=== PATIENT | male | born 1990 | race Caucasian/White ===

== ENCOUNTER 2018-05-19 21:26 | Inpatient (IN) | payer MEDICAID ==
[~2018-05-19] VITALS: Ht 175.3 cm; Wt 121.6 kg
[2018-05-19 21:27] VITALS: BP 122/59
--- NOTE | 2018-05-19 21:31 | NUR ---
TO ER BED 10
--- NOTE | 2018-05-19 21:32 | NUR ---
RT AT BEDSIDE WITH BREATHING TX.
[2018-05-19] MEDS ORDERED: NACL 0.9% 1,000 ML IV ONE ×2 (21:40)
[2018-05-19] MEDS ORDERED: ALBUTEROL SULFATE/IPRATROPIU 3 ML SOL IH ONE (21:40)
--- NOTE | 2018-05-19 21:42 | NUR ---
NON-REBREATHER MASK APPLIED PER DR BARNES ORDERS AT 15LPM.
[2018-05-19 21:57] LABS: HEMATOCRIT 34.8 % (36-52); HEMOGLOBIN 11.3 g/dL (12.0-18.0); MEAN CORPUSCULAR HEMOGLOBIN 26 pg (27-31); MEAN CORPUSCULAR HGB CONC 32 g/dL (33-37); MEAN CORPUSCULAR VOLUME 80.2 fL (80-94); PLATELET COUNT (AUTO) 420 K/uL (140-450); RED BLOOD CELL COUNT(AUTO) 4.33 MIL/uL (4.20-6.10); RED CELL DISTRIBUTION WIDTH 13.8 % (11.6-13.7); WHITE BLOOD COUNT (AUTO) 18.7 K/uL (4.8-10.8)
--- NOTE | 2018-05-19 22:00 | NUR ---
CHEST TUBE SETUP PREPARED PER DR BARNES ORDERS. OBTAINED CONCENT FOR PROCEDURE. PT A&OX4. PT STABLE, RESPONSIVE, SIGNED FOR SELF. CONTINUE TO MONITOR.
[2018-05-19 22:24] LABS: PROTHROMBIN TIME 12.6 secs (10.8-13.4)
--- NOTE | 2018-05-19 22:30 | NUR ---
PT REMAINS TACHYPNIC, TACHYCARDI, A&OX4, HOB ELEVATED, SKIN WNL. RN AND RT AT BEDSIDE. CONTINUE TO MONITOR.
[2018-05-19 22:33] LABS: LYMPHOCYTES % (MANUAL) 12 % (20-46); MONOCYTES % (MANUAL) 6 % (5-12)
[2018-05-19] MEDS ORDERED: LIDOCAINE/EPI 1% 1:100000 20 ML VIAL INJ ONE (22:45)
[2018-05-19] MEDS ORDERED: LEVOFLOXACIN 750 MG/D5W PREMIX 150 ML IV ONE (22:55)
[2018-05-19] MEDS ORDERED: KETAMINE 500 MG/5 ML VIAL IVP ONE (23:00)
--- NOTE | 2018-05-19 23:07 | NUR ---
TIME OUT CALLED BY DR CRONIN
--- NOTE | 2018-05-19 23:23 | NUR ---
MODERATE SEDATION STARTED. RT AT BEDSIDE. DR FRAUSTO AT BEDSIDE SUPERVISED BY DR CRONIN.
--- NOTE | 2018-05-19 23:31 | NUR ---
KATAMINE 75MG PUSHED. RT AT BEDSIDE. VERBAL ORDER FROM DR CRONIN
--- NOTE | 2018-05-19 23:37 | NUR ---
ATRIUM CONNECTED, PLEURAVAC SET TO 20CM OF WATER SUCTION Addendum: 05/20/18 at 0645 by [facility] CONNECTED, PLEURAVAC SET TO -20CM OF WATER SUCTION PER DR MOLLY AGUILAR. AIR LEAK DETECTED UPON ATTACHMENT. WATER CHAMBER FLUCTUTING WITH RESPIRATIONS. WALL SUCTION SET TO LOW CONTINUOUS. 10ML OF SANGINEOUS FLUID DRAINED.
--- NOTE | 2018-05-19 23:40 | NUR ---
INITIAL 10ML OF FLUID REMOVED FROM PLEURAL CAVITY.
--- NOTE | 2018-05-19 23:40 | NUR ---
DR SHER APPLIED DELILAH MARTINEZ AROUND CHEST TUBE SITE, PRESSURE DRESSING APPLIED, TUBE SECURED WITH ELASIAPLAST TAPE. PT TOLERATED PROCEDURE WELL. Addendum: 05/20/18 at 0605 by MED KETAMINE 75MG PUSHED. RT AT BEDSIDE. VERBAL ORDER FROM DR CRONIN
--- NOTE | 2018-05-19 23:41 | NUR ---
PT STARTED RESPONDING TO STIMULIE. FOLLOWING COMMANDS
--- NOTE | 2018-05-19 23:47 | NUR ---
PROCEDURE COMPLETED. TOLERATED PROCEDURE WELL.
--- NOTE | 2018-05-19 23:52 | NUR ---
XRAY AT BEDSIDE
[2018-05-19 23:55] LABS: POTASSIUM 4.1 mmol/L (3.5-5.1)
--- NOTE | 2018-05-19 23:55 | NUR ---
PT ALERT TO NAME, FOLLOWS VERBAL COMMANDS, CONFUSED TO DATE/TIME/PLACE/EVENT. MOTHER AT BED SIDE. ER NURSE AT BEDSIDE. CONTINUE TO MONITOR.
[2018-05-19 23:56] LABS: ANION GAP 13.9 (8-16); CARBON DIOXIDE 23.2 mmol/L (21-32); CREATININE 1.6 mg/dL (0.7-1.3)
[2018-05-19 23:58] LABS: TOTAL BILIRUBIN 3.1 mg/dL (0.0-1.0)
[2018-05-19 23:59] LABS: ALBUMIN 2.4 g/dL (3.4-5.0)
[2018-05-20] VITALS (11 sets, daily range): BP systolic 97–145; BP diastolic 35–90
[2018-05-20] MEDS ORDERED: HYDROcodone/APAP 7.5/325 MG 1 TAB PO PRN
[2018-05-20] MEDS ORDERED: DOCUSATE SODIUM 100 MG GELCAP PO PRN
[2018-05-20] MEDS ORDERED: ONDANSETRON 4 MG/2 ML VIAL IM/IVP PRN
[2018-05-20] MEDS ORDERED: ACETAMINOPHEN 325 MG TAB PO PRN
--- NOTE | 2018-05-20 | NUR ---
PT ALERT TO NAME, FOLLOWS VERBAL COMMANDS, CONFUSED TO DATE/TIME/PLACE/EVENT. MOTHER AT BED SIDE. ER NURSE AT BEDSIDE. CONTINUE TO MONITOR.
--- NOTE | 2018-05-20 00:07 | NUR ---
PT ALERT TO NAME, PLACE, EVENT, CONFUSTED TO TIME/DAY. FOLLOWS VERBAL COMMANDS. PT IMPROVING. NOW C/O PAIN 7/10 PAIN PER FACE SCALE.
[2018-05-20] MEDS ORDERED: fentaNYL 0.05 MG/ML VIAL IVP ONE (00:10)
[2018-05-20] MEDS ORDERED: ALBUTEROL SULFATE/IPRATROPIU 3 ML SOL IH PRN (00:10)
--- NOTE | 2018-05-20 00:21 | NUR ---
A&OX3. ALERT TO NAME PLACE AND EVENT. VSS. CONTINUE TO MONITOR.
--- NOTE | 2018-05-20 00:27 | NUR ---
45ML SEROUS FLUID IN COLLECTOIN CHAMBER. PLEUAVAC SUCTION SET TO 20CM. SUCTION TUBING AND CHEST TUBE ON LEFT SIDE INTACT. VSS. CONTINUE TO MONITOR. PREPARING TO MOVE TO ICU 3.
[2018-05-20] MEDS: ALBUTEROL SULFATE/IPRATROPIU 3 ML SOL IH SCH ×6 (01:00→23:13)
[2018-05-20] MEDS ORDERED: KETAMINE 500 MG/5 ML VIAL IVP ONE (01:05)
--- NOTE | 2018-05-20 01:30 | NUR ---
PATIENT WAS BROUGHT TO [facility] BY ED RN OLIVIER AND ELOY ER CHARGE NURSE FOR CT CHEST/ABD/PELVIS, WENT THERE TO TAKE OVER PATIENT'S CARE, PATIENT BROUGHT TO ICU AT 0130.
--- NOTE | 2018-05-20 01:30 | NUR ---
RECEIVED PT FROM ER VIA GURNEY.ATTACHED TO MONITOR.ST NOTED.ON 100% NON REBREATHER, BREATHING LABORED.W/ CHEST TUBE TO LT CHEST DRAINING SEROSANGUINEOUS OUTPUT(45ML LINE FROM ER). PT AWAKE ALERT AND ORIENTED.W/PERIPHERAL IV TO RT F/A G22 INTACT INFUSING ORDERED IVF.DENIES N/V AT THIS TIME.DENIESPAIN.ABLE TO MOVE ALL EXTREMITIES.
--- NOTE | 2018-05-20 01:40 | NUR ---
HOLD HHN TX DUE TO HR MORE THE 138, BS ARE CLEAR UPPER AIRAY AND DIMINISHED IN BASES.
[2018-05-20] MEDS ORDERED: DEXTROSE 50% 50 ML SYR IVP PRN (01:45)
--- NOTE | 2018-05-20 01:45 | NUR ---
PT DIAPHORETIC; BS CHECKED 131
[2018-05-20 02:03] LABS: MAGNESIUM 2.1 mg/dL (1.8-2.4)
[2018-05-20 02:04] LABS: CHOL/HDL RATIO 5.5 (1-4.5); PHOSPHORUS 4.2 mg/dL (2.5-4.9)
[2018-05-20 02:32] LABS: FREE T4 (FREE THYROXINE) 2.15 ng/dL (0.76-1.46); THYROID STIMULATING HORMONE 0.01 uIU/mL (0.34-3.74)
[2018-05-20] MEDS: NACL 0.9% 1,000 ML IV SCH ×3 (02:56→20:11)
--- NOTE | 2018-05-20 03:16 | NUR ---
URINE SPECIMEN SENT TO LAB ORDERED
[2018-05-20 03:32] LABS: APPEARANCE,URINE CLEAR (CLEAR); BILIRUBIN,URINE NEGATIVE (NEGATIVE); BLOOD, URINE NEGATIVE (NEGATIVE); COLOR,URINE AMBER (YELLOW); LEUKOCYTE ESTERASE ,URINE NEGATIVE (NEGATIVE); NITRITE, URINE NEGATIVE (NEGATIVE); UGLUCOSE NEGATIVE (NEGATIVE)
[2018-05-20] MEDS ORDERED: METOPROLOL 5 MG/5 ML VIAL IVP ONE (03:35)
--- NOTE | 2018-05-20 03:35 | NUR ---
abg done by rt as ordered.non rebreather changed to simple mask. will continue to monitor pt.chest tube intact.
[2018-05-20 03:39] LABS: BARBITURATE, URINE NEG. ng/ml (NEG <=200); BENZODIAZEPINE, URINE NEG. ng/mL (NEG <=200); CANNABINOID, URINE NEG. ng/mL (NEG <=50); COCAINE, URINE NEG. ng/mL (NEG <=300); OPIATE, URINE NEG. ng/mL (NEG <=2000); PHENCYCLIDINE SCREEN,URINE NEG. ng/mL (NEG <=25)
[2018-05-20 03:54] LABS: RBC,URINE 0-5 (RARE) /HPF (0-5); WBC,URINE 0-5 (RARE) /HPF (0-5)
[2018-05-20 03:56] LABS: COARSE GRANULAR CASTS,URINE 0-10 /LPF (None Seen)
--- NOTE | 2018-05-20 05:19 | NUR ---
PHONE CALL TO DR ARLETH RUSH, RE; METOPROLOL NOT GIVEN EARLIER DUE TO SBP BELOW 100; BP AT THIS TIME 141/78; HR 120'S. TO GIVE METOPROLOL NOW
[2018-05-20] MEDS: MORPHINE SULFATE 2 MG/ML SYR IVP PRN ×3 (06:04→14:46)
--- NOTE | 2018-05-20 06:57 | NUR ---
DR LATHAM AND DR STONE AT BEDSIDE.NO NEW ORDERS AT THIS TIME
--- NOTE | 2018-05-20 07:14 | NUR ---
REPORT GIVEN TO LYRIC WEST.
--- NOTE | 2018-05-20 07:16 | NUR ---
RECEIVED REPORT FROM SUPERVISOR OF INSTRUCTION RN. PT RESTING IN BED. TACHYPNEIC. ON FACE MASK O2 AT 7 LTR/MIN. SATURATING 97%. SKIN DRY AND WARM TO TOUCH. LUNGS SOUND DIMINISHED. CHEST TUBE NOTED ON LEFT CHEST. SECURED WITH DRESSING. INTACT DRESSING. BLOODY DRAINAGE NOTED ON WATER SEAL CHEST DRAIN. PATIENT DENIES CHEAT PAIN AND DISCOMFORT AT THIS TIME. RIGHT AC 20G. NS RUNNING AT 120 ML/HR. ABDOMEN SOFT, ROUND AND NON-TENDER, ACTIVE BOWEL PT. KEPT HOB ELEVATED. BED IN LOW POSITION LOCKED. CALL LIGHT WITHIN REACH. WILL CONTINUE TO MONITOR.
[2018-05-20 07:32] LABS: HEMATOCRIT 32.1 % (36-52); HEMOGLOBIN 10.2 g/dL (12.0-18.0); MEAN CORPUSCULAR HEMOGLOBIN 26 pg (27-31); MEAN CORPUSCULAR HGB CONC 32 g/dL (33-37); MEAN CORPUSCULAR VOLUME 80.8 fL (80-94); PLATELET COUNT (AUTO) 370 K/uL (140-450); RED BLOOD CELL COUNT(AUTO) 3.97 MIL/uL (4.20-6.10); RED CELL DISTRIBUTION WIDTH 13.7 % (11.6-13.7); WHITE BLOOD COUNT (AUTO) 19.6 K/uL (4.8-10.8)
--- NOTE | 2018-05-20 07:44 | NUR ---
PT FINISHED EATING BREAKFAST. KEPT ON FACE MASK AT 7 LTR/MIN. SATURATING 97%.
--- NOTE | 2018-05-20 07:50 | NUR ---
PT DENIED MORNING CARE.
[2018-05-20 07:52] LABS: EOSINOPHILS % (MANUAL) 1 % (0-4); LYMPHOCYTES % (MANUAL) 4 % (20-46); MONOCYTES % (MANUAL) 5 % (5-12)
[2018-05-20 07:54] LABS: ANION GAP 13.5 (8-16); CARBON DIOXIDE 21.7 mmol/L (21-32); CREATININE 1.5 mg/dL (0.7-1.3); POTASSIUM 5.2 mmol/L (3.5-5.1)
[2018-05-20 07:58] LABS: MAGNESIUM 2.1 mg/dL (1.8-2.4); PHOSPHORUS 3.9 mg/dL (2.5-4.9)
--- NOTE | 2018-05-20 08:00 | NUR ---
RT AT BED SIDE.
--- NOTE | 2018-05-20 08:22 | NUR ---
PATIENT HAS BEEN SCREENED AND CATEGORIZED HIGH NUTRITION RISK. PATIENT WILL BE SEEN WITHIN 1-2 DAYS OF ADMISSION. 05/20/18 05/21/[address]
--- NOTE | 2018-05-20 09:07 | NUR ---
DR. HOWELL AT BEDSIDE EVALUATING PT.
[2018-05-20] MEDS: BLOOD GLUCOSE MONITORING 1 DEV DEV FS SCH ×4 (09:10→20:13)
[2018-05-20] MEDS: PANTOPRAZOLE 40 MG INJ VIAL IVP SCH (09:20)
[2018-05-20] MEDS: ASPIRIN 81 MG TAB.CHEW PO SCH (09:20)
[2018-05-20] MEDS: METOPROLOL 25 MG TAB PO SCH ×2 (09:25→20:33)
[2018-05-20] MEDS: LISINOPRIL 10 MG TAB PO SCH (09:26)
[2018-05-20] MEDS: ALBUTEROL SULFATE/IPRATROPIU 3 ML SOL IH PRN (09:41)
[2018-05-20] MEDS: LORazepam 2 MG/ML VIAL IVP PRN ×3 (09:42→14:45)
[2018-05-20] MEDS ORDERED: LORazepam 2 MG/ML VIAL ONE (09:44)
[2018-05-20] MEDS ORDERED: methylPREDNISolone SS 40 MG/ML VIAL IVP SCH (10:00)
[2018-05-20] MEDS ORDERED: BUDESONIDE 0.5 MG/2 ML NEBU INH SCH (10:00)
--- NOTE | 2018-05-20 10:40 | NUR ---
ATIVAN 1MG IVP WAS ADMINISTERED ORDERED FOR ANXIETY. Addendum: 05/20/18 at 1437 by Erin Vargas RN GIVEN AT 0944 AM
--- NOTE | 2018-05-20 10:58 | NUR ---
PT TACHYPENIC. DENIED PAIN. DENIED TALKING TO THE DOCTOR AT THIS TIME.
--- NOTE | 2018-05-20 12:14 | NUR ---
PT RESTING IN BED. ON NON-REMREATHER MASK. SATURATING 98%. FAMILY AT BEDSIDE. DENIES PAIN.
--- NOTE | 2018-05-20 12:25 | NUR ---
PT VOIDED X1 THIS MORNING. NO VOIDING AFTER THEN. PT DENIES ABDOMINAL TENDERNESS OR DISCOMFORT AT THIS TIME. DR. LACIE BECK.
--- NOTE | 2018-05-20 14:06 | NUR ---
05/20/18 RD INITIAL ASSESSMENT COMPLETED PLEASE REFER TO NUTRITION ASSESSMENT UNDER CARE ACTIVITY FOR ESTIMATED NUTRITIONAL NEEDS. 1. CONTINUE CLEAR LIQUID DIET TOLERATED 2. RECOMMEND ENSURE CLEAR TID 3. IF/WHEN PATIENT IS MEDICALLY STABLE CONSIDER ADVANCING DIET TO REGULAR, HIGH PROTEIN DIET TOLERATED 4. RD TO PROVIDE NUTRITION EDUCATION FOR INCREASING CALORIE INTAKE 5. RD TO FOLLOW-UP 2-3 DAYS, HIGH RISK KAREEM COYNE, RD
--- NOTE | 2018-05-20 15:02 | NUR ---
PT SLEEPING IN BED AT THIS TIME. ST ON MONITOR. ON O2 VIA FACE MASK. ON CONTINUOUS MONITORING.
[2018-05-20] MEDS ORDERED: PIPER/TAZO 3.375GM/D5W PREMIX 50 ML IV SCH (16:08)
--- NOTE | 2018-05-20 16:59 | NUR ---
DR. MEDELLIN AWARE ABOUT Ca 8.2.
--- NOTE | 2018-05-20 17:26 | NUR ---
PULMONARY VQ SCAN IN PROCESS.
--- NOTE | 2018-05-20 18:03 | NUR ---
AFTER COMPLETING VQ SCAN, PT NOTED TRYING TO GET OUT FROM THE BED. IV PULLING OUT DRESSING. UP ON ASKING "WHY YOU ARE DOING THIS?" PT SAID "I WANT TO WANT TO LEAVE. I AM OK". REASSURE PT THAT HE IS GETTING BETTER BECAUSE OF THE TREATMENT WE ARE PROVIDING HIM. PT INSISTED TO GET OUT OF BED AND GO HOME AND REFUSED TO LAY ON BED AND MAKE HIMSELF COMFORTABLE. REFUSED EATING DINNER. CALLED MOTHER AND MADE AWARE ABOUT WHAT PT IS SAYING. PT ARGUED WITH MOTHER, INSISTED TO GO HOME. CALLED SECURITY. DR. FRAUSTO MADE AWARE. REASSURED PT THAT HE NEEDS TREATMENT TO BE BETTER AND WILL SEND HOME AFTER HIS CONDITION GETS BETTER. PT AGREED, WENT BACK IN TO THE BED. PROVIDED DINNER TRAY AND ASSISTED NEEDED. ATE DINNER. MOTHER AT BEDSIDE.
[2018-05-20] MEDS: BUDESONIDE 0.5 MG/2 ML NEBU INH SCH (19:08)
--- NOTE | 2018-05-20 19:11 | NUR ---
RECEIVED REPORT FROM AM SHIFT. PT. AO X 4. AFEBRILE. ABLE TO VERBALIZE NEEDS. FAMILY AT BEDSIDE. LUNG SOUNDS DIMINISHED. ON OXIMIZER 6 LPM. L SIDED CHEST TUBE TO LWS. DRESSING INTACT. SR ON MONITOR. ON CLEAR LIQUID DIET. BOWEL SOUNDS ABSENT X 4 QUADRANTS. BLADDER NONDISTENDED. TESTES ENLARGED. SR ON MONITOR. R AC 20G. PATENT. BED IN LOWEST POSITION. CALL LIGHT WITHIN REACH.
--- NOTE | 2018-05-20 19:12 | NUR ---
REPORT GIVEN TO SR. STRATEGIC SOURCING MANAGER RN FOR CONTINUITY OF CARE. PT ON STABLE CONDITION.
--- NOTE | 2018-05-20 20:00 | NUR ---
RT AT BEDSIDE FOR ABG
--- NOTE | 2018-05-20 20:30 | NUR ---
DR DALTON AT BEDSIDE TO EVALUATE PATIENT. UPDATED ON CURRENT CONDITION. WILL CONTINUE TO FOLLOW UP ANY ADDITIONAL ORDERS.
[2018-05-20] MEDS: PIPER/TAZO 3.375GM/D5W PREMIX 50 ML IV SCH (20:32)
[2018-05-20] MEDS: SIMVASTATIN 40 MG TAB PO SCH (20:33)
[2018-05-20] MEDS: methylPREDNISolone SS 40 MG/ML VIAL IVP SCH (20:33)
--- NOTE | 2018-05-20 20:45 | NUR ---
PT URINATED 250 ML VIA URINAL. DARK ARTEMIO IN COLOR.
--- NOTE | 2018-05-20 22:50 | NUR ---
DR. ESPITIA (RESIDENT) INFORMED THAT DR. VELA DID NOT COME YET TO SEE THE PATIENT.
--- NOTE | 2018-05-20 23:01 | NUR ---
PT RESTING QUIETLY AT THIS TIME. NO SIGNS OF ACUTE DISTRESS NOTED.
--- NOTE | 2018-05-20 23:21 | NUR ---
RT AT BEDSIDE FOR BREATHING TX AT THIS TIME. NO SIGNS OF ACUTE DISTRESS NOTED.
[2018-05-21] VITALS (12 sets, daily range): BP systolic 93–142; BP diastolic 40–80
[2018-05-21] MEDS: ALBUTEROL SULFATE/IPRATROPIU 3 ML SOL IH SCH ×6 (00:19→23:06)
--- NOTE | 2018-05-21 01:30 | NUR ---
PT WISHES TO GET UP AND USE BEDSIDE COMMODE FOR BOWEL MOVEMENT. REFUSES BEDPAN. EXPLAINED RISK V BENEFITS X3. PT SILL REFUSED. PT UNABLE TO HAVE BOWEL MOVEMENT. PT PUT BACK INTO BED.
--- NOTE | 2018-05-21 01:35 | NUR ---
CHEST TUBE DRESSING CHANGED. LINENS AND GOWN CHANGED AT THIS TIME.
--- NOTE | 2018-05-21 03:00 | NUR ---
PT URINATED 300 ML OF DARK ARTEMIO URINE AT THIS TIME.
--- NOTE | 2018-05-21 03:10 | NUR ---
RT AT BEDSIDE AT THIS TIME.
[2018-05-21] MEDS: PIPER/TAZO 3.375GM/D5W PREMIX 50 ML IV SCH ×3 (04:14→20:22)
--- NOTE | 2018-05-21 05:10 | NUR ---
PT REQUESTS TO USE BEDSIDE COMMODE FOR BOWEL MOVEMENT. EXPLAINED RISK VS. BENEFITS. PT STILL REFUSES BEDPAN. PT ONLY HAD AN EVENT OF FLATUS. NO BOWEL MOVEMENT AT THIS TIME. REFUSED COLACE. NO SIGNS OF ACUTE DISTRESS.
--- NOTE | 2018-05-21 06:25 | NUR ---
XRAY AT BEDSIDE AT THIS TIME.
[2018-05-21] MEDS: BLOOD GLUCOSE MONITORING 1 DEV DEV FS SCH ×4 (06:37→20:23)
[2018-05-21 06:42] LABS: T4 (THYROXINE) 16.9 ug/dL (4.5-12.0)
[2018-05-21] MEDS: BUDESONIDE 0.5 MG/2 ML NEBU INH SCH ×2 (07:05→18:44)
--- NOTE | 2018-05-21 07:10 | NUR ---
ENDORSED CARE TO INCOMING SHIFT FOR CONTINUITY OF CARE. NO SIGNS OF ACUTE DISTRESS AT THIS TIME.
--- NOTE | 2018-05-21 07:12 | NUR ---
RECEIVED REPORT FROM PIN FEATHER MACHINE OPERATOR RN. PT RESTING IN BED. A/O X4. ABLE TO MAKE NEEDS KNOWN. TACHYPNEIC. ON FACE OXYMIZER O2 AT 6 LTR/MIN. SATURATING 97%. SKIN DRY AND WARM TO TOUCH. LUNGS SOUND WHEEZES. CHEST TUBE NOTED ON LEFT CHEST DRAINING SEROSANGUINEOUS DRAINAGE. LOW-INTERMITTENT SUCTION. SITE SECURED WITH DRESSING. INTACT DRESSING. NO ACTIVE BLEEDING NOTED. PATIENT DENIES CHEST PAIN AND DISCOMFORT AT THIS TIME. RIGHT AC 20G. NS RUNNING AT 60 ML/HR. ABDOMEN SOFT, ROUND AND NON-TENDER, ACTIVE BOWEL PT. KEPT HOB ELEVATED. BED IN LOW POSITION LOCKED. CALL LIGHT WITHIN REACH. WILL CONTINUE TO MONITOR.
[2018-05-21] MEDS ORDERED: HEPARIN PER PHARMACY MC PRN (07:25)
--- NOTE | 2018-05-21 08:03 | NUR ---
PT IS PLANNED FOR BIOPSY TEST. WILL PROVIDE BREAKFAST AFTER THE PROCEDURE. ENCOURAGED PT FOR MORNING CARE AND BRUSHING TEETH. PT DENIED.
[2018-05-21] MEDS: PANTOPRAZOLE 40 MG INJ VIAL IVP SCH (08:16)
[2018-05-21] MEDS: ASPIRIN 81 MG TAB.CHEW PO SCH ×2 (08:17→08:22)
[2018-05-21] MEDS: methylPREDNISolone SS 40 MG/ML VIAL IVP SCH ×2 (08:17→20:22)
[2018-05-21] MEDS: METOPROLOL 25 MG TAB PO SCH ×2 (08:17→20:23)
[2018-05-21] MEDS: LISINOPRIL 10 MG TAB PO SCH (08:18)
--- NOTE | 2018-05-21 08:22 | NUR ---
HELD ASPIRIN PER DR. MEDELLIN.
[2018-05-21] MEDS: METHIMAZOLE 5 MG TAB PO SCH (08:23)
[2018-05-21 08:29] LABS: HEMATOCRIT 27.9 % (36-52); MEAN CORPUSCULAR HEMOGLOBIN 26 pg (27-31); MEAN CORPUSCULAR HGB CONC 32 g/dL (33-37); MEAN CORPUSCULAR VOLUME 81.5 fL (80-94); PLATELET COUNT (AUTO) 427 K/uL (140-450); RED BLOOD CELL COUNT(AUTO) 3.43 MIL/uL (4.20-6.10); RED CELL DISTRIBUTION WIDTH 14.2 % (11.6-13.7); WHITE BLOOD COUNT (AUTO) 25.5 K/uL (4.8-10.8)
[2018-05-21 08:42] LABS: ANION GAP 13.9 (8-16); CARBON DIOXIDE 21.9 mmol/L (21-32); CREATININE 1.9 mg/dL (0.7-1.3); POTASSIUM 4.8 mmol/L (3.5-5.1)
--- NOTE | 2018-05-21 08:44 | NUR ---
PT LEFT FOR CT BIOPSY VIA GURNEY ACCOMPANIED BY RN, RT, AND ADMINISTRATIVE OPERATIONS COORDINATOR.
[2018-05-21 08:46] LABS: MAGNESIUM 2.5 mg/dL (1.8-2.4); PHOSPHORUS 4.8 mg/dL (2.5-4.9)
[2018-05-21 08:50] LABS: PROTHROMBIN TIME 14.2 secs (10.8-13.4)
[2018-05-21 09:10] LABS: LYMPHOCYTES % (MANUAL) 7 % (20-46)
[2018-05-21 09:11] LABS: MONOCYTES % (MANUAL) 4 % (5-12)
--- NOTE | 2018-05-21 09:37 | NUR ---
PT BACK TO ICU BED 3 VIA MONE, ACCOMPANIED WITH RN, RT. AND FLOOR CARE TECHNICIAN. PT STATED HE FEELS FINE. BEDSIDE MONITOR SHOWS HR 100. O2 SATS 97 % AT THIS MOMENT.
--- NOTE | 2018-05-21 09:53 | NUR ---
PT REMAIN STABLE THROUGHOUT THE BIOPSY PROCEDURE IN CT ROOM. RESTING IB BED COMFORTABLY AT THIS TIME. NO CHANGE IN LOC. WILL CONTINUE TO MONITOR.
[2018-05-21] MEDS ORDERED: VANCOMYCIN PER PHARMACY MC PRN (10:10)
[2018-05-21] MEDS: hePARIN / DEXT 5% PREMIX 250 ML IV SCH ×2 (10:37→21:39)
--- NOTE | 2018-05-21 10:37 | NUR ---
HEPARIN DRIP NOT STARTED PER PHARMACY. DRIP WILL START AFTER FINISHING VANCOMYCIN.
[2018-05-21] MEDS: VANCOMYCIN 1GM/DEXT 5% PREMIX 200 ML IV SCH ×2 (10:50→22:40)
[2018-05-21] MEDS: INSULIN LISPRO SLIDING SCALE 100 UNITS/ML VIAL SUBQ PRN ×2 (11:21→20:24)
--- NOTE | 2018-05-21 11:55 | NUR ---
SPOKE WITH SANTOS IN ADMITTING AT [facility]. SHE ASKED ME TO FAX THE FACE SHEET AND MOST RECENT DOCTOR'S NOTES, WHICH I DID TO [facility] [phone]. PHONE [phone]. I ALSO CALLED [facility] AND SPOKE WITH ROLANDO. SHE SAID THEY DID NOT TAKE MEDICAL H[facility] PRESUMP WITH A [facility]OR[facility].
--- NOTE | 2018-05-21 12:25 | NUR ---
HEPARIN DRIP STARED AT 15ML/HR. PHARMACY MADE AWARE.
[2018-05-21] MEDS: NACL 0.9% 1,000 ML IV SCH ×2 (12:48→16:20)
--- NOTE | 2018-05-21 13:08 | NUR ---
CALLED [facility] AND SPOKE WITH MEET IN ADMITTING, [phone] PER DR. MEDELLIN, LOOKING FOR ICU BED. MEET SAID TO FAX THE FACE SHEET AND H&P TO [phone]. I GAVE HER THE PHONE NUMBER TO ICU AND TO MISSING PERSONS INVESTIGATOR DOUGLAS TO CALL IF NEEDED. I ALSO GAVE HER THE PHONE NUMBER TO DR. LATHAM. I INFORMED HER THAT ONCOLOGIST DR. VELA WAS COMING TO SEE THE PATIENT AND SHE WOULD LIKE TO KNOW WHAT HIS RECCOMMENDATION IS. I CALLED [facility] AND SPOKE WITH BILL. NO ICU BEDS. I CALLED [facility], . I SPOKE WITH ORTIZ IN NURSING ADMINISTRATION AND SHE SAID NEED TO CALL BACK LATER TO SPEAK WITH BRYAN IN BED CONTROL
--- NOTE | 2018-05-21 14:30 | NUR ---
PT DESATURATING ON OXYMIZER PLACED ON NRM AT 15 LPM SPO2 .94
--- NOTE | 2018-05-21 14:40 | NUR ---
O2 SATURATION DROPPED DOWN TO 88%. PLACED PT ON NON-REBREATHER AT 13 LTR/MIN. RT MADE AWARE.
--- NOTE | 2018-05-21 15:08 | NUR ---
NO CHANGE IN LOC. FAMILY AT BED SIDE. VS WNL. WILL CONTINUE TO MONITOR.
--- NOTE | 2018-05-21 15:49 | NUR ---
RECEIVED CALL FROM [facility] TRANSFER, SPOKE TO NELLI. SHE STATED THAT DOCTOR IN [facility] DENYING THE PT TO RECEIVE. ACCORDING TO NELLI, DOCTOR WANTS PT TRANSFER TO [facility]. DR. MEDELLIN MADE AWARE.
--- NOTE | 2018-05-21 16:46 | NUR ---
PO COLACE GIVEN. TOLERATING WELL. SEEN BY DR. GRIMES.
--- NOTE | 2018-05-21 17:57 | NUR ---
EATING DINNER AT THIS TIME.
[2018-05-21] MEDS: ALBUTEROL SULFATE/IPRATROPIU 3 ML SOL IH PRN (18:44)
--- NOTE | 2018-05-21 18:48 | NUR ---
PT C/O SHORTNESS OF BREATH, BEDSIDE MONITOR SHOWS O2 SATS 85-87%CHANGED OXYMIZER TO NON-REBREATHER, PT STILL C/O SOB, O2 SATS SHOWS 80S%, CALLED RT.
--- NOTE | 2018-05-21 18:53 | NUR ---
CALLED TO ICU. O2 SATS STATED TO BE IN THE LOW 80S. PULSE OX ADJUSTED AND O2 SATS REFLECTED HIGH 90S. PATIENT STATED FEELING SOB. BREATH SOUNDS REVEALED BILATERAL I/E WHEEZING. PATIENT CALMLY ON PHONE. PT GIVEN TX OF DUONEB AND PULMICORT. AERATION IMPROVED AND WHEEZING CEASED. VITALS STABLE. PATIENT PLACED BACK ON OXIMIZER 6L AND O2 SATS REFLECTED 95%.
--- NOTE | 2018-05-21 19:30 | NUR ---
RECEIVED REPORT FROM MORNING SHIFT RN. PATIENT AAOX4, TACHYPNEIC WITH NON REBREATHER MASK O2 AT 15L/M WITH O2 SATURATION 95%. BILATERAL LUNGS SOUND WHEEZING NOTED. CHEST TUBE TO LEFT UPPER CHEST SEROUS DRAINAGE NOTED, CONNECTING LOW-INTERMITTENT SUCTION. SITE SECURED WITH DRESSING AND ABDOMINAL BINDER. NO ACTIVE BLEEDING NOTED. PATIENT DENIES CHEST PAIN OR DISCOMFORT AT THIS TIME. PERIPHERAL LINE TO RIGHT AC 20G AND LEFT HAND 22G NOTED. NS RUNNING AT 60 ML/HR AND HEPARIN DRIP 1500 UNITS/KG/HR NOTED. ACTIVE BOWEL SOUND FROM ALL QUADS. HOB ELEVATED, BED IN LOW POSITION. CALL LIGHT WITHIN REACH. WILL CONTINUE TO MONITOR.
--- NOTE | 2018-05-21 19:37 | NUR ---
REPORT GIVEN TO WATER METER INSTALLER RN FOR CONTINUITY OF CARE. PT ON STABLE CONDITION.
--- NOTE | 2018-05-21 19:50 | NUR ---
FINANCIAL FOUNDATIONS ASSOCIATE AT BEDSIDE FOR APTT AT THIS TIME. AND DR. FRAUSTO AT BEDSIDE TO CHECK THE PATIENT. WILL FOLLOW ORDER.
--- NOTE | 2018-05-21 19:50 | NUR ---
CHANGED PATIENTS POX PROBE. SATS 100%. NO BIPAP NEEDED AT THIS TIME. BIPAP AT BEDSIDE PRN
[2018-05-21] MEDS: SIMVASTATIN 40 MG TAB PO SCH (20:22)
--- NOTE | 2018-05-21 20:50 | NUR ---
ADMINISTERED SCHEDULED MEDICATION ORDERED. NO ACUTE DISTRESS NOTED. DENIES PAIN AT THIS TIME. BS CHECKED 178 NOTED. ADMINISTERED 2 UNITS OF HUMALOG. WILL CONTINUE TO MONITOR.
--- NOTE | 2018-05-21 21:20 | NUR ---
DR. FRAUSTO AT BEDSIDE TO CHECK THE PATIENT AND RECEIVED ORDER TO CHANGE THE NON BREATHER MASK TO OXYMIZER O2 AT 7L/M. WILL CONTINUE TO MONITOR.
--- NOTE | 2018-05-21 21:40 | NUR ---
RECEIVED APTT RESULT 34.1 NOTED. ADMINISTERED HEPARIN 7200 UNITS PROTOCOL AND INCREASED THE RATE OF HEPARIN DRIP TO 1860 UNITS/KG/HR. WILL CONTINUE TO MONITOR.
[2018-05-21] MEDS: MORPHINE SULFATE 2 MG/ML SYR IVP PRN (22:40)
--- NOTE | 2018-05-21 22:40 | NUR ---
PATIENT COMPLAINT OF GENERALIZED ACHING PAIN 10/10. ADMINISTERED PRN MORPHINE ORDERED AND ADMINISTERED IV ABX ORDERED. WILL CONTINUE TO MONITOR.
[2018-05-22] VITALS (13 sets, daily range): BP systolic 100–139; BP diastolic 40–72
--- NOTE | 2018-05-22 | NUR ---
PATIENT IN ASLEEP AT THIS TIME. AROUSABLE TO NAME. NO ACUTE DISTRESS NOTED. WILL CONTINUE TO MONITOR.
[2018-05-22] MEDS: hePARIN / DEXT 5% PREMIX 250 ML IV SCH ×2 (02:21→14:56)
--- NOTE | 2018-05-22 03:00 | NUR ---
RECEIVED APTT RESULT 39.0. ADMINISTERED HEPARIN BOLUS 3600 UNITS AND INCREASED DRIP TO 2060UNITS/KG/HR. PATIENT IN ASLEEP, AROUSABLE TO NAME. NO ACUTE DISTRESS NOTED. ST ON THE MONITOR. TACHYPNEA NOTED. WILL CONTINUE TO MONITOR.
[2018-05-22] MEDS: ALBUTEROL SULFATE/IPRATROPIU 3 ML SOL IH SCH ×5 (03:15→19:14)
[2018-05-22] MEDS: PIPER/TAZO 3.375GM/D5W PREMIX 50 ML IV SCH ×3 (04:36→20:50)
--- NOTE | 2018-05-22 04:50 | NUR ---
PATIENT IN ASLEEP AT THIS TIME, AROUSABLE TO NAME. DENIES PAIN. NO ACUTE DISTRESS NOTED. ST ON THE MONITOR. TACHYPNEA NOTED. WILL CONTINUE TO MONITOR.
--- NOTE | 2018-05-22 05:30 | NUR ---
ADMINISTERED ABX ORDERED. PATIENT REFUSED CLEANING DUE TO HE IS SLEEPY AND COLD AT THIS TIME. NO ACUTE DISTRESS NOTED. STILL TACHYPNEA AND ST ON THE MONITOR. WILL CONTINUE TO MONITOR.
[2018-05-22 05:51] LABS: ANION GAP 9.6 (8-16); CARBON DIOXIDE 25.3 mmol/L (21-32); POTASSIUM 4.9 mmol/L (3.5-5.1)
[2018-05-22 05:54] LABS: MAGNESIUM 2.5 mg/dL (1.8-2.4); PHOSPHORUS 4.8 mg/dL (2.5-4.9)
[2018-05-22 06:01] LABS: RED BLOOD CELL COUNT(AUTO) 3.25 MIL/uL (4.20-6.10); WHITE BLOOD COUNT (AUTO) 23.5 K/uL (4.8-10.8)
[2018-05-22 06:02] LABS: HEMATOCRIT 26.7 % (36-52); MEAN CORPUSCULAR HEMOGLOBIN 28 pg (27-31); MEAN CORPUSCULAR HGB CONC 34 g/dL (33-37); MEAN CORPUSCULAR VOLUME 82.1 fL (80-94); PLATELET COUNT (AUTO) 522 K/uL (140-450)
[2018-05-22 06:25] LABS: LYMPHOCYTES % (MANUAL) 6 % (20-46); MONOCYTES % (MANUAL) 3 % (5-12)
[2018-05-22] MEDS: BUDESONIDE 0.5 MG/2 ML NEBU INH SCH ×2 (06:31→19:14)
--- NOTE | 2018-05-22 07:14 | NUR ---
PHONE CALL TO DR MEDELLIN; MADE AWARE BELLA FROM RADIOLOGY DEPT CALLED; PT HAS ORDER FOR CT CHEST ANGIO WITH AND WITHOUT CONTRAST; PROCEDURE CANNOT BE DONE; CREATININE LEVEL 2.0
--- NOTE | 2018-05-22 07:15 | NUR ---
RECEIVED BEDSIDE REPORT FROM ARCHITECT IN TRAINING RN, MYA, FOR CONTINUITY OF CARE. PATIENT IS AAOX4, ABLE TO MAKE NEEDS KNOWN AND FOLLOW COMMANDS. PATIENT SKIN IS WARM AND DRY. HE HAS PERIPHERAL IV SITE TO R. AC AND L HAND, 20 GAUGE, ASYMPTOMATIC AND PATENT. PATIENT HAS CHEST TUBE IN PLACE TO LOW INTERMITTENT SUCTION, PATIENT DENIES ANY SOB, SPO2 IS 95%, R SIDE LUNG SOUNDS CLEAR, L SIDE LUNG SOUNDS WHEEZES, PATIENT IS ON NASAL OXIMIZER 7LPM. ST ON FILER AND SANDER, PATIENT COMPLAINS OF ABD PAIN 6/10 THAT IS TOLERABLE. HOB IS IN SEMI-EM, SAFETY PRECAUTIONS ASSESSED AND ENFORCED. NO SIGNS OF DISTRESS NOTED AT THIS TIME. WILL CONTINUE TO MONITOR.
--- NOTE | 2018-05-22 07:15 | NUR ---
BEDSIDE REPORT GIVEN TO MORNING NURSE FOR CONTINUITY OF CARE.
--- NOTE | 2018-05-22 07:25 | NUR ---
DR. LATHAM AND RESIDENT PHYSICIANS IN TO ROUND ON PATIENT, WILL FOLLOW UP ON ANY ORDERS.
[2018-05-22] MEDS: BLOOD GLUCOSE MONITORING 1 DEV DEV FS SCH ×4 (07:26→20:55)
[2018-05-22] MEDS: METOPROLOL 25 MG TAB PO SCH (08:34)
[2018-05-22] MEDS: methylPREDNISolone SS 40 MG/ML VIAL IVP SCH (08:34)
[2018-05-22] MEDS: PANTOPRAZOLE 40 MG INJ VIAL IVP SCH (08:34)
[2018-05-22] MEDS: METHIMAZOLE 5 MG TAB PO SCH (08:35)
[2018-05-22] MEDS: LISINOPRIL 10 MG TAB PO SCH (08:35)
--- NOTE | 2018-05-22 09:00 | NUR ---
PT LEFT FOR HEAD CT WITHOUT CONTRAST PER ORDER. ACCOMPANIED WITH RN AND TECH.
--- NOTE | 2018-05-22 09:18 | NUR ---
PATIENT BACK ON UNIT AFTER CT SCAN, NO SIGNS OF DISTRESS NOTED DURING PROCEDURE, PATIENT TOLERATED WELL.
--- NOTE | 2018-05-22 09:54 | NUR ---
PATIENT'S FAMILY AT BEDSIDE, UPDATED ON PATIENT'S CONDITION. WILL CONTINUE TO MONITOR
[2018-05-22] MEDS: VANCOMYCIN 1GM/DEXT 5% PREMIX 200 ML IV SCH ×2 (11:01→23:04)
[2018-05-22] MEDS: NACL 0.9% 1,000 ML IV SCH (11:01)
--- NOTE | 2018-05-22 12:26 | NUR ---
DR. GRIMES IN TO SEE PATIENT, UPDATED ON PATIENT'S CONDITION. WILL FOLLOW UP ON ANY ORDERS.
--- NOTE | 2018-05-22 14:12 | NUR ---
05/22/18 RD FOLLOW UP COMPLETED PLEASE REFER TO NUTRITION PROGRESS NOTE UNDER CARE ACTIVITY FOR ESTIMATED NUTRITION NEEDS. RD RECOMMENDATIONS: 1. CONTINUE REGULAR DIET TOLERATED 2. CONTINUE ENSURE TID 3. RD TO FOLLOW-UP 3-5 DAYS, MODERATE RISK PAZ WELDON MBA, RD
--- NOTE | 2018-05-22 15:45 | NUR ---
DR. VAN IN TO SEE AND EXAMINE PATIENT, UPDATED ON PATIENT'S CONDITION. WILL FOLLOW UP WITH ANY ORDERS.
--- NOTE | 2018-05-22 16:06 | NUR ---
US TECH AT BEDSIDE FOR US OF LOWER EXTREMITIES, PATIENT TOLERATING WELL. NO SIGNS OF DISTRESS NOTED
[2018-05-22] MEDS: DEXAMETHASONE 4 MG/ML VIAL IVP SCH ×2 (17:11→23:58)
--- NOTE | 2018-05-22 19:04 | NUR ---
ENDORSED CONTINUITY OF CARE TO INDEPENDENT VIDEO PRODUCER RNMYA, NO SIGNS OF DISTRESS NOTED AT THIS TIME.
--- NOTE | 2018-05-22 19:20 | NUR ---
RECEIVED REPORT FROM MORNING SHIFT RN. PATIENT AAOX4, TACHYPNEIC WITH OXYMIZER O2 AT 9L/M WITH O2 SATURATION 95%. BILATERAL LUNGS SOUND WHEEZING NOTED. CHEST TUBE TO LEFT UPPER CHEST SEROUS DRAINAGE NOTED, CONNECTING LOW-INTERMITTENT SUCTION. SITE SECURED WITH DRESSING AND ABDOMINAL BINDER. NO ACTIVE BLEEDING NOTED. PATIENT DENIES CHEST PAIN OR DISCOMFORT AT THIS TIME. PERIPHERAL LINE TO RIGHT AC 20G AND LEFT HAND 22G NOTED. NS RUNNING AT 60 ML/HR. ACTIVE BOWEL SOUND FROM ALL QUADS. DR. TOURE CARDIO AT BEDSIDE TO CHECK THE PATIENT AT THIS TIME. WILL FOLLOW THE ORDERS. HOB ELEVATED, BED IN LOW POSITION. CALL LIGHT WITHIN REACH. WILL CONTINUE TO MONITOR.
[2018-05-22] MEDS: MORPHINE SULFATE 2 MG/ML SYR IVP PRN (19:44)
--- NOTE | 2018-05-22 20:00 | NUR ---
BIPAP PLACED ON BY RT. ADMINISTERED PRN MORPHINE DUE TO GENERALIZED ACHING PAIN 05/05 AT 1950. WILL CONTINUE TO MONITOR.
--- NOTE | 2018-05-22 20:30 | NUR ---
ENGINEERING TECHNICAL ANALYST AND FAMILY MEMBERS AT BEDSIDE TO PRAY.
[2018-05-22] MEDS: SIMVASTATIN 40 MG TAB PO SCH (20:50)
--- NOTE | 2018-05-22 20:55 | NUR ---
AT 1938 PLACED PATIENT ON BIPAP PER MD ORDER SETTING, DUE TO TACHYPNEA RATE 34-40 BPM, WITH DR. TOURE AT BESIDE. 1999-PATIENT TACHYPNEA INCREASED ON BIPAP BETWEEN 55-60BPM AND SAO2 STAYED SAME AT 95% AND AT [address] VARGAS AND STATED TO PLACE BACK ON OXYMIZER 6LPM. AT 2119 PATIENT RESP RATE IS BETWEEN 22-32BPM WITH NO SIGNS OF DISTRESS ON OXYMIZER. WILL CONTINUE TO MONITOR
[2018-05-22] MEDS: INSULIN LISPRO SLIDING SCALE 100 UNITS/ML VIAL SUBQ PRN (20:57)
[2018-05-22] MEDS ORDERED: METOPROLOL SUCCINATE 50 MG TABER PO SCH (21:00)
--- NOTE | 2018-05-22 21:00 | NUR ---
ADMINISTERED SCHEDULED MEDICATIONS ORDERED. BS CHECKED 187 NOTED. ADMINISTERED INSULIN SLIDING SCALE. WILL CONTINUE TO MONITOR.
--- NOTE | 2018-05-22 22:53 | NUR ---
SPOKE WITH PHARMACY JIMMY, NOTIFIED JOSELITOO T RESULT 11.9. RECEIVED ORDER CONTINUE SAME DOSE OF VANCOMYCIN.
[2018-05-23] VITALS (11 sets, daily range): BP systolic 102–140; BP diastolic 43–77
--- NOTE | 2018-05-23 00:30 | NUR ---
ADMINISTERED SCHEDULED MEDICATIONS ORDERED. PATIENT STILL TACHYPNEA, ST ON THE MONITOR. DENIES PAIN AT THIS TIME. NO ACUTE DISTRESS NOTED. WILL CONTINUE TO MONITOR.
[2018-05-23] MEDS: ALBUTEROL SULFATE/IPRATROPIU 3 ML SOL IH SCH ×5 (00:51→15:43)
--- NOTE | 2018-05-23 02:19 | NUR ---
PATIENT IN ASLEEP AT THIS TIME, AROUSABLE TO NAME, NO ACUTE DISTRESS NOTED. DENIES PAIN. ST ON THE MONITOR. WILL CONTINUE TO MONITOR.
[2018-05-23] MEDS: DEXAMETHASONE 4 MG/ML VIAL IVP SCH ×2 (05:06→11:24)
[2018-05-23] MEDS: PIPER/TAZO 3.375GM/D5W PREMIX 50 ML IV SCH ×2 (05:06→12:56)
--- NOTE | 2018-05-23 05:10 | NUR ---
ADMINISTERED SCHEDULED MEDICATIONS ORDERED, STILL TACHYPNEA, TACHYCARDIA NOTED. PATIENT DENIES PAIN OR DISCOMFORT AT THIS TIME. PATIENT IN ASLEEP. NO ACUTE DISTRESS NOTED. WILL CONTINUE TO MONITOR.
[2018-05-23] MEDS: LORazepam 2 MG/ML VIAL IVP PRN ×2 (05:56→11:24)
[2018-05-23 05:57] LABS: HEMATOCRIT 26.6 % (36-52); HEMOGLOBIN 8.5 g/dL (12.0-18.0); MEAN CORPUSCULAR HEMOGLOBIN 26 pg (27-31); MEAN CORPUSCULAR HGB CONC 32 g/dL (33-37); MEAN CORPUSCULAR VOLUME 81.5 fL (80-94); PLATELET COUNT (AUTO) 356 K/uL (140-450); RED BLOOD CELL COUNT(AUTO) 3.26 MIL/uL (4.20-6.10); WHITE BLOOD COUNT (AUTO) 23.3 K/uL (4.8-10.8)
--- NOTE | 2018-05-23 06:00 | NUR ---
PATIENT COMPLAINT ABOUT RESTLESSNESS, ADMINISTERED PRN ATIVAN, ST ON THE MONITOR, RESPIRATION 35 NOTED. WILL CONTINUE TO MONITOR.
[2018-05-23] MEDS: BUDESONIDE 0.5 MG/2 ML NEBU INH SCH (06:33)
--- NOTE | 2018-05-23 06:40 | NUR ---
AT THE BEDSIDE TO CHECK THE PATIENT. WILL FOLLOW THE ORDER.
--- NOTE | 2018-05-23 07:08 | NUR ---
RECEIVED BEDSIDE REPORT FROM ASPHALT BLENDER RN, MYA, FOR CONTINUITY OF CARE. PATIENT IS AAOX4, ABLE TO FOLLOW COMMANDS AND MAKE NEEDS KNOWN. PATIENT SKIN IS WARM AND DRY AND INTACT. PATIENT HAS PERIPHERAL IV SITE TO LEFT HAND, ASYMPTOMATIC, PATENT, INTACT. PATIENT HAS CHEST TUBE TO LEFT UPPER CHEST, SEROSANGUINEOUS DRAINAGE NOTED, CONNECTED TO LOW-INTERMITTENT SUCTION. ABDOMINAL BINDER IN PLACE TO SECURE DRESSING. ACCESSORY MUSCLE USED. DENIES ANY CHEST PAIN OR DISCOMFORT AT THIS TIME. ST ON MONITOR, PATIENT DENIES PAIN AT THIS TIME. HOB IN SEMI-EM POSITION, SAFETY PRECAUTIONS ASSESSED AND IN PLACE. CALL LIGHT WITHIN REACH. WILL CONTINUE TO MONITOR.
[2018-05-23 07:09] LABS: MAGNESIUM 2.1 mg/dL (1.8-2.4)
[2018-05-23 07:20] LABS: ANION GAP 14.8 (8-16); CREATININE 1.7 mg/dL (0.7-1.3); POTASSIUM 4.8 mmol/L (3.5-5.1)
--- NOTE | 2018-05-23 07:20 | NUR ---
BEDSIDE REPORT GIVEN TO MORNING SHIFT NURSE.
[2018-05-23] MEDS: BLOOD GLUCOSE MONITORING 1 DEV DEV FS SCH ×3 (07:36→16:22)
--- NOTE | 2018-05-23 08:07 | NUR ---
DR. LATHAM AND RESIDENT PHYSICIANS AT BEDSIDE, UPDATED ON PATIENT'S CONDITION. WILL FOLLOW UP ON ANY ORDERS.
[2018-05-23 08:29] LABS: LYMPHOCYTES % (MANUAL) 6 % (20-46); METAMYELOCYTES % 2 % (0-0); MONOCYTES % (MANUAL) 6 % (5-12)
[2018-05-23] MEDS: LISINOPRIL 10 MG TAB PO SCH (08:49)
[2018-05-23] MEDS: METHIMAZOLE 5 MG TAB PO SCH (08:49)
[2018-05-23] MEDS: PANTOPRAZOLE 40 MG INJ VIAL IVP SCH (08:49)
--- NOTE | 2018-05-23 09:17 | NUR ---
ADMINISTERED SCHEDULED MEDS, PATIENT TOLERATED WELL. DENIES ANY PAIN AT THIS TIME. WILL CONTINUE TO MONITOR. FAMILY AT BEDSIDE.
--- NOTE | 2018-05-23 09:23 | NUR ---
PATIENT COMPLAINING OF 7/10 ABD PAIN, WILL GIVE PRN PAIN MEDICATION.
--- NOTE | 2018-05-23 09:35 | NUR ---
ADMINISTERED MORPHINE PRN IVP, PATIENT TOLERATED WELL. WILL CONTINUE TO MONITOR.
[2018-05-23] MEDS: MORPHINE SULFATE 2 MG/ML SYR IVP PRN ×3 (10:08→15:28)
[2018-05-23] MEDS ORDERED: VANCOMYCIN HCL 1,250 MG in DEXTROSE 5% 250 ML IV SCH (11:00)
--- NOTE | 2018-05-23 11:18 | NUR ---
DR. VAN IN TO SEE AND EXAMINE PATIENT, UPDATED ON PATIENT'S CONDITION. RECEIVED ORDER TO CLAMP CHEST TUBE AND TURN OFF SUCTION FOR CHEST XRAY TOMORROW MORNING
--- NOTE | 2018-05-23 11:20 | NUR ---
CHEST TUBE CLAMPED, SUCTION OFF. PATIENT TOLERATING WELL. WILL CONTINUE TO MONITOR
[2018-05-23] MEDS: NACL 0.9% 1,000 ML IV SCH (12:20)
--- NOTE | 2018-05-23 12:30 | NUR ---
c/o pain 10/10 pt IS AWAKE AND ALERT AT THE TIME. MEDICATION GIVEN ORDERED.
[2018-05-23] MEDS ORDERED: PROBIOTIC SCREEN 1 EA MISC MC PRN (13:55)
[2018-05-23] MEDS ORDERED: MAGNESIUM CITRATE 300 ML BTL PO SCH (14:00)
--- NOTE | 2018-05-23 14:33 | NUR ---
DR. VELA IN TO SEE AND EXAMINE PATIENT, UPDATED ON PATIENT'S CONDITION. WILL FOLLOW UP ON ANY ORDERS.
--- NOTE | 2018-05-23 15:01 | NUR ---
PT DEFERS [facility] WANTS TO EAT
--- NOTE | 2018-05-23 15:44 | NUR ---
ENDORSED REPORT TO [facility] FROM [facility] FOR HIGHER LEVEL OF CARE. TRANSPORT IS SET UP AND WILL BE PICKING UP PATIENT AT 1800.
[2018-05-23] MEDS ORDERED: DEXA4VIA11 IVP (16:18)
[2018-05-23] MEDS ORDERED: TAP5 PO (16:18)
[2018-05-23] MEDS ORDERED: Vancomycin Per Pharmacy MC (16:18)
[2018-05-23] MEDS ORDERED: ZOS3.375I IV (16:18)
[2018-05-23] MEDS ORDERED: METO50TE2 PO (16:18)
--- NOTE | 2018-05-23 18:17 | NUR ---
PATIENT PICKED UP BY [facility], DENIES ANY SOB OR PAIN, STILL TACHYPNEIC AND TACHYCARDIC. ENDORSED REPORT TO [facility], AWARE THAT PATIENT WILL BE TRANSFERRED TO [facility] SICU BED 6.
== END 2018-05-23 18:05 | disposition short-term general hospital (02) | DRG 710 ==
LOC: MED 21:26 → MIC 05-20 00:01 → MTU 05-22 20:39 → MIC 05-22 20:43
PROVIDERS: ADMIT General Practice; ATTEND General Practice
PROC: 0W9B00Z Drainage of Left Pleural Cavity with Drainage Device, Open Approach (ICD-10-PCS; 2018-05-19)
PROC: 07BC3ZX Excision of Pelvis Lymphatic, Percutaneous Approach, Diagnostic (ICD-10-PCS; principal; 2018-05-21)
DX: A41.9 Sepsis, unspecified organism (principal); J96.01 Acute respiratory failure with hypoxia; I21.A1 Myocardial infarction type 2; I26.99 Other pulmonary embolism without acute cor pulmonale; E43 Unspecified severe protein-calorie malnutrition; N17.0 Acute kidney failure with tubular necrosis; C77.9 Secondary and unspecified malignant neoplasm of lymph node, unspecified; J18.9 Pneumonia, unspecified organism; N13.30 Unspecified hydronephrosis; C78.00 Secondary malignant neoplasm of unspecified lung; C62.90 Malignant neoplasm of unspecified testis, unspecified whether descended or undescended; J93.9 Pneumothorax, unspecified; E87.1 Hypo-osmolality and hyponatremia; E05.90 Thyrotoxicosis, unspecified without thyrotoxic crisis or storm; E11.9 Type 2 diabetes mellitus without complications; F12.90 Cannabis use, unspecified, uncomplicated; F17.210 Nicotine dependence, cigarettes, uncomplicated; E87.8 Other disorders of electrolyte and fluid balance, not elsewhere classified; Z68.39 Body mass index [BMI] 39.0-39.9, adult; E87.5 Hyperkalemia; E66.01 Morbid (severe) obesity due to excess calories; I25.10 Atherosclerotic heart disease of native coronary artery without angina pectoris
CPT/HCPCS: 32551; 36415; 36600; 70450; 71045; 71250; 74018; 76870; 77012; 78582; 80048; 80053; 80202; 80305; 81001; 82105; 82140; 82150; 82550; 82803; 83036; 83605; 83615; 83690; 83735; 83880; 84100; 84436; 84439; 84443; 84484; 84702; 85025; 85610; 85730; 87040; 87081; 87086; 93005; 93970; 94640; 94660; 96361; 96365; 99291; C9113; G0482; J1100; J1644; J1815; J1956; J2001; J2060; J2270; J2543; J2920; J3010; J3370; J3490; J7030; J7060; J7620; J7626; Q0092